=== PATIENT | female | born 1950 | race Caucasian/White ===

== ENCOUNTER 2018-08-26 13:51 | Emergency (ER) | payer MEDICARE, OTHER ==
[2018-08-26 13:52] VITALS: BMI 38.3
[2018-08-26 14:03] VITALS: O2SAT 98
[2018-08-26] MEDS ORDERED: Lidocaine 5% Patch TD STA (14:14)
--- NOTE | 2018-08-26 14:43 | ED PDOC ---
HPI: Trauma/Fall - HPI Time Seen by Provider: 08/26/18 14:05 Chief Complaint (Nursing): Trauma Chief Complaint (Provider): head injury and fall History Per: Patient History/Exam Limitations: no limitations Onset/Duration Of Symptoms: Hrs (11:00 this morning) Location Of Injury: Left: Head, Hip, Posterior: Head Associated Symptoms: denies: LOC Additional Complaint(s): Margoth Spencer is a 68 year old female, with a past medical history of HTN and arthritis, who presents to the emergency department for evaluation of a head injury s/p fall onset at 11:00 this morning. Patient is reporting a headache to the left posterior head sudden onset after she fell down coming out of a building and slipped on the stairs. She denies any LOC but reports hitting both her left head and left hip on the ground. Patient does have swelling on the left side of her head and also reports some posterior right sided neck pain. She hasn't taken any medication for pain. She denies any nausea, vomit, blurry vision, focal weakness or unsteady gait. No further medical complaints. Of note, patient is from [place] and is currently in the area visiting her daughter in the hospital. PMD: In [place]. - Fall Fall:Prior To Injury: Slipped Past Medical History Reviewed: Historical Data, Nursing Documentation, Vital Signs Vital Signs: Last Vital Signs Temp 97.8 F 08/26/18 14:02 Pulse 89 08/26/18 14:02 Resp 18 08/26/18 14:02 BP 133/83 08/26/18 14:02 Pulse Ox 98 08/26/18 14:02 - Medical History PMH: Arthritis, HTN, Hypercholesterolemia - Surgical History Surgical History: Appendectomy, Tonsillectomy - Family History Family History: States: Hypertension - Social History Current smoker - smoking cessation education provided: No Alcohol: None Drugs: Denies - Home Medications Home Medications: Ambulatory Orders Medication Instructions Recorded Allopurinol 100 mg PO DAILY 04/13/15 Cholecalciferol (Vitamin D3) 1 tab PO DAILY 04/13/15 [Vitamin D3] GlipiZIDE [Glucotrol] 10 mg PO DAILY 04/13/15 Lisinopril/Hydrochlorothiazide 1 tab PO DAILY 04/13/15 [Lisinopril-Hydrochlorothiazide 12.5 mg-20 mg] Metformin Hydrochloride/Shelbi 1 tab PO DAILY 04/13/15 [Janumet 1000 mg-50 mg] Simvastatin 10 mg PO DAILY 04/13/15 amLODIPine [Norvasc] 5 mg PO DAILY 04/13/15 Acetaminophen [Tylenol Extra 1,000 mg PO Q6 PRN #100 tablet 08/26/18 Strength] Lidocaine 5% [Lidoderm] 1 ea TD DAILY PRN #10 patch 08/26/18 Naproxen [Naprosyn] 1 tab PO BID PRN #30 tab 08/26/18 - Allergies Allergies/Adverse Reactions: Allergies Allergy/AdvReac Type Severity Reaction Status Date / Time tramadol Allergy NAUSEA Verified 08/26/18 14:00 Review of Systems ROS Statement: Except As Marked, All Systems Reviewed And Found Negative Eyes: Negative for: Vision Change (blurry vision) Gastrointestinal: Negative for: Nausea, Vomiting Musculoskeletal: Positive for: Neck Pain (right posterior) Neurological: Positive for: Headache (left posterior). Negative for: Weakness (focal), Other (unsteady gait) Physical Exam - Reviewed Nursing Documentation Reviewed: Yes Vital Signs Reviewed: Yes - Physical Exam Appears: Positive for: Non-toxic, In Acute Distress (Mild painful distress) Head Exam: Positive for: NORMAL INSPECTION, NORMOCEPHALIC. Negative for: ATRAUMATIC (subtle hematoma to the left parietal scalp) Skin: Positive for: Normal Color, Warm, Dry Eye Exam: Positive for: Normal appearance, EOMI, PERRL Neck: Positive for: Painless ROM. Negative for: Normal (Tenderness along the right paraspinal C-spine but no midline tenderness or step-off.) Cardiovascular/Chest: Positive for: Regular Rate, Rhythm. Negative for: Murmur Respiratory: Positive for: Normal Breath Sounds. Negative for: Respiratory Distress Gastrointestinal/Abdominal: Positive for: Normal Exam, Soft. Negative for: Tenderness, Guarding, Rebound Back: Positive for: Normal Inspection. Negative for: L CVA Tenderness, R CVA Tenderness, Vertebral Tenderness Extremity: Positive for: Normal ROM (Full ROM of hip. Negative logroll ), Tenderness (Tenderness to palpation of the left buttock). Negative for: Deformity, Swelling Neurologic/Psych: Positive for: Alert, Oriented (x3). Negative for: Motor/Sensory Deficits - ECG O2 Sat by Pulse Oximetry: 98 (RA) Pulse Ox Interpretation: Normal Medical Decision Making Medical Decision Making: Time: 14:05 Initial Impression: Head injury, neck strain, hip injury. Differential includes but not limited to fracture, TBI, cervical spine strain or fracture Initial Plan: --Cervical spine w/o contrast [CT] --Head w/o contrast [CT] --Tylenol 325mg tab 975 mg PO --Hip Min 2V w/ Pelvis LT [RAD] --Reevaluation 15:[address] FINDINGS: HEMORRHAGE: No intracranial hemorrhage. BRAIN: No mass effect or edema. No atrophy or chronic microvascular ischemic changes. 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 VENTRICLES: Unremarkable. No hydrocephalus. CALVARIUM: Unremarkable. PARANASAL SINUSES: Unremarkable as visualized. No significant inflammatory changes. MASTOID AIR CELLS: Unremarkable as visualized. No inflammatory changes. OTHER FINDINGS: None. IMPRESSION: Normal CT of the Head. 16:[address] FINDINGS: VERTEBRAE: No fracture. Normal alignment. No destructive bony lesion. DISCS/SPINAL CANAL/NEURAL FORAMINA: Multilevel cervical spondylotic change. Findings most prominent at C5-6. PARASPINAL SOFT TISSUES: Unremarkable. OTHER FINDINGS: None. IMPRESSION: No acute findings related to/ accounting for the clinical presentation. Multilevel degenerative change. 16:44 Hip X-ray shows no acute fracture or dislocation. Upon provider evaluation patient is medically stable, and requires no further treatment in the ED at this time. Patient will be discharged home. Counseling was provided and all questions were answered regarding diagnosis and need for follow up with PMD. There is agreement to discharge plan. Return if symptoms persist or worsen. Scribe Attestation: Documented by Toño Leyva, acting as a scribe for Desiree Butler MD Provider Scribe Attestation: All medical record entries made by the Scribe were at my direction and personally dictated by me. I have reviewed the chart and agree that the record accurately reflects my personal performance of the history, physical exam, medical decision making, and the department course for this patient. I have also personally directed, reviewed, and agree with the discharge instructions and disposition. Disposition - Clinical Impression Clinical Impression: Scalp contusion, Head injury, Neck muscle strain, Contusion of hip - Disposition Disposition: Routine/Home Disposition Time: 16:44 Condition: STABLE Prescriptions: Acetaminophen [Tylenol Extra Strength] 1,000 mg PO Q6 PRN #100 tablet PRN Reason: FEVER OR PAIN Lidocaine 5% [Lidoderm] 1 ea TD DAILY PRN #10 patch PRN Reason: PAIN Naproxen [Naprosyn] 1 tab PO BID PRN #30 tab PRN Reason: Pain Instructions: Preventing Falls in the Older Adult, Minor Head Injury (DC), Cervical Muscle Strain (DC), Hip Pointer (DC) Print Language: JAPANESE
[2018-08-26] MEDS ORDERED: Lidocaine 5% Patch TD ONE (14:58)
--- NOTE | 2018-08-26 16:02 | CT ---
Date of service: 08/26/2018 PROCEDURE: CT HEAD WITHOUT CONTRAST. HISTORY: head injury s/p fall COMPARISON: None available. TECHNIQUE: Axial computed tomography images were obtained through the head/brain without intravenous contrast. Supplemental Coronal and Sagittal projections created and reviewed. Radiation dose: Total exam DLP = 1276.32 mGy-cm. This CT exam was performed using one or more of the following dose reduction techniques: Automated exposure control, adjustment of the mA and/or kV according to patient size, and/or use of iterative reconstruction technique. FINDINGS: HEMORRHAGE: No intracranial hemorrhage. BRAIN: No mass effect or edema. No atrophy or chronic microvascular ischemic changes. 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 VENTRICLES: Unremarkable. No hydrocephalus. CALVARIUM: Unremarkable. PARANASAL SINUSES: Unremarkable as visualized. No significant inflammatory changes. MASTOID AIR CELLS: Unremarkable as visualized. No inflammatory changes. OTHER FINDINGS: None. IMPRESSION: Normal CT of the Head.
--- NOTE | 2018-08-26 16:36 | CT ---
Date of service: 08/26/2018 PROCEDURE: CT Cervical Spine without contrast HISTORY: head injury and neck pain s/p fall COMPARISON: High starting late TECHNIQUE: Axial computed tomography images were obtained of the cervical spine without the use of intravenous contrast. Coronal and sagittal reformatted images were created and reviewed. Radiation dose: Total exam DLP = 317.41 mGy-cm. This CT exam was performed using one or more of the following dose reduction techniques: Automated exposure control, adjustment of the mA and/or kV according to patient size, and/or use of iterative reconstruction technique. FINDINGS: VERTEBRAE: No fracture. Normal alignment. No destructive bony lesion. DISCS/SPINAL CANAL/NEURAL FORAMINA: Multilevel cervical spondylotic change. Findings most prominent at C5-6. PARASPINAL SOFT TISSUES: Unremarkable. OTHER FINDINGS: None. IMPRESSION: No acute findings related to/ accounting for the clinical presentation. Multilevel degenerative change.
[2018-08-26 17:03] VITALS: BP 106/76; PULSE 80; RESP 16; TEMP 97.6
--- NOTE | 2018-08-27 13:07 | RAD ---
PROCEDURE: Left Hip X-ray Radiographs. HISTORY: LEFT hip pain s/p fall COMPARISON: None. FINDINGS: BONES: Normal. No fracture. JOINTS: Normal. SOFT TISSUES: Normal. OTHER FINDINGS: None. IMPRESSION: Normal left hip radiographs. Concordant results with the preliminary interpretation rendered by the emergency department physician procedure.
== END 2018-08-26 17:00 | disposition home or self-care (01) ==
LOC: H.ER 13:51
DX: S00.03XA Contusion of scalp, initial encounter (principal); S70.02XA Contusion of left hip, initial encounter; S16.1XXA Strain of muscle, fascia and tendon at neck level, initial encounter; S09.90XA Unspecified injury of head, initial encounter; W10.8XXA Fall (on) (from) other stairs and steps, initial encounter; Y92.89 Other specified places as the place of occurrence of the external cause; E78.00 Pure hypercholesterolemia, unspecified; I10 Essential (primary) hypertension; Z79.84 Long term (current) use of oral hypoglycemic drugs; Z88.8 Allergy status to other drugs, medicaments and biological substances